=== PATIENT | female | born 1980 | race Caucasian/White ===

== ENCOUNTER 2025-05-15 06:34 | Day surgery (SDC) | payer OTHER, SELFPAY ==
[2025-05-15 10:17] LABS: HCG, Urine Qualitative Screen Negative
== END 2025-05-15 13:08 | disposition home or self-care (01) ==
LOC: GI 06:34
PROVIDERS: ATTENDING PHYSICIAN Internal Medicine Gastroenterology
DX: Z12.11 Encounter for screening for malignant neoplasm of colon (principal); K62.1 Rectal polyp; K22.2 Esophageal obstruction; K44.9 Diaphragmatic hernia without obstruction or gangrene
CPT/HCPCS: 45380; 43249; 81025; 88305